=== PATIENT | female | born 1990 | race Caucasian/White ===

== ENCOUNTER → 2024-02-16 08:20 | Outpatient (REF) | payer OTHER, SELFPAY | LOC: RAD 08:20 | PROVIDERS: ATTENDING PHYSICIAN Podiatrist; FAMILY PHYSICIAN Physician Assistant Medical | DX: M67.479 Ganglion, unspecified ankle and foot (principal); M67.40 Ganglion, unspecified site | CPT/HCPCS: 76882 ==

== ENCOUNTER → 2024-04-13 16:01 | Outpatient (REF) | payer OTHER, SELFPAY | LOC: CLAB 16:01 | PROVIDERS: ATTENDING PHYSICIAN Podiatrist Foot Surgery | DX: R22.41 Localized swelling, mass and lump, right lower limb (principal) | CPT/HCPCS: 88305 ==